=== PATIENT | male | born 1995 | race Native Hawaiian/Other Pacific Islander ===

== ENCOUNTER 2018-03-23 00:44 | Emergency (ER) | payer OTHER ==
[~2018-03-23] VITALS: Ht 188 cm; Wt 131.5 kg
[~2018-03-23 00:44] MED LIST: ACTICIN 5% CREA60 G1 TOP; BACTRIM DS TAB1 EACH PO; BACTROBAN CREAM30 GM TOP; CLOTRIMAZOLE AF30 GM TP; IBUPROFEN 200200 M1 PO; IBUPROFEN 600600 M1 PO; KEFLEX500 MG PO; KETOCONAZOLE60 GM TP; NOHOMEMEDICATIONS; PERMETHRIN60 GM TOP
[2018-03-23] MEDS ORDERED: HYDROXYZINE HCL25 M1 PO (01:45)
[2018-03-23 02:02] VITALS: BP 132/68
== END 2018-03-23 02:02 | disposition home or self-care (01) ==
LOC: M.ERS 00:44
DX: R21 Rash and other nonspecific skin eruption (principal); S50.862A Insect bite (nonvenomous) of left forearm, initial encounter; S50.861A Insect bite (nonvenomous) of right forearm, initial encounter; S10.96XA Insect bite of unspecified part of neck, initial encounter; W57.XXXA Bitten or stung by nonvenomous insect and other nonvenomous arthropods, initial encounter; Y93.89 Activity, other specified; Y92.89 Other specified places as the place of occurrence of the external cause; Y99.8 Other external cause status

== ENCOUNTER 2019-10-11 08:21 | Emergency (ER) | payer OTHER ==
[~2019-10-11] VITALS: Ht 188 cm; Wt 102.5 kg
[~2019-10-11 08:21] MED LIST changes: +HYDROXYZINE HCL25 M1 PO
[2019-10-11] MEDS ORDERED: BACTRIM DS TAB1 EAC1 PO (08:55)
[2019-10-11] MEDS ORDERED: NORCO 5-325 TA1 EAC2 PO (08:55)
[2019-10-11 09:01] VITALS: BP 142/84
== END 2019-10-11 09:02 | disposition home or self-care (01) ==
LOC: M.ERS 08:21
DX: L03.317 Cellulitis of buttock (principal)

== ENCOUNTER 2021-04-19 21:32 | Emergency (ER) | payer OTHER ==
[~2021-04-19] VITALS: Ht 188 cm; Wt 152.0 kg
[~2021-04-19 21:32] MED LIST changes: +BACTRIM DS TAB1 EAC1 PO; +NORCO 5-325 TA1 EAC2 PO
[2021-04-20] MEDS ORDERED: IBUPROFEN 800800 MG PO (00:23)
[2021-04-20] MEDS ORDERED: AUGMENTIN 875-1 EACH PO (00:23)
[2021-04-20] MEDS ORDERED: HYDROCODON-ACE1 EAC7 PO (00:23)
[2021-04-20 00:48] VITALS: BP 116/73
== END 2021-04-20 00:49 | disposition home or self-care (01) ==
LOC: M.ERS 21:32
DX: L02.31 Cutaneous abscess of buttock (principal); L03.317 Cellulitis of buttock

== ENCOUNTER 2021-05-26 11:45 | Emergency (ER) | payer OTHER ==
[~2021-05-26] VITALS: Ht 188 cm; Wt 152.0 kg
[~2021-05-26 11:45] MED LIST changes: +AUGMENTIN 875-1 EACH PO; +HYDROCODON-ACE1 EAC7 PO; +IBUPROFEN 800800 MG PO
[2021-05-26 13:47] VITALS: BP 128/86
== END 2021-05-26 13:47 | disposition home or self-care (01) ==
LOC: M.ERS 11:45
DX: M54.9 Dorsalgia, unspecified (principal)